=== PATIENT | male | born 1935 | race Caucasian/White ===

== ENCOUNTER → 2018-12-03 | Outpatient (REF) | payer MEDICARE ==
[~2018-12-03] MED LIST: ASPIRIN EC81 MG PO; LEVOTHYROXIN50 MCG PO; LISINOPRIL10 MG PO; OCUVIT1 PO; SIMVASTATIN40 MG PO; TIMOLOL 0.5%5 ML OD; XALATAN0.005 % OU
[2018-12-03 10:06] LABS: HEMATOCRIT 34.7 % (39.0-50.0); HEMOGLOBIN 11.3 g/dl (14.0-18.0); MEAN CELL VOLUME 97.7 fL CALC (80.0-100.0); MEAN CORPUSCULAR HGB 31.8 pG CALC (26.0-32.0); MEAN CORPUSCULAR HGB CONC 32.6 g/L CALC (32.0-36.0); RED BLOOD COUNT 3.55 mill/uL (4.70-6.10); RED CELL DISTRI WIDTH 13.3 % (11.5-15.5)
[2018-12-03 10:26] LABS: ALBUMIN 4.1 g/dL (3.2-5.0); BILIRUBIN, TOTAL 0.5 mg/dL (0.0-1.4); CREATININE 1.9 mg/dL (0.7-1.3); POTASSIUM 4.8 mmol/l (3.5-5.1); TOTAL PROTEIN 6.5 g/dL (6.3-8.2)
[2018-12-03 11:01] LABS: TSH, 3RD GENERATION 4.04 uIU/mL (0.47 - 4.68)
== END | disposition home or self-care (01) ==
LOC: LAB 08:09
PROVIDERS: ATTEND Internal Medicine
DX: E78.5 Hyperlipidemia, unspecified (principal); N18.3 Chronic kidney disease, stage 3 (moderate)

== ENCOUNTER 2022-12-15 09:22 | Emergency (ER) | payer MEDICARE ==
[~2022-12-15] VITALS: Ht 177.8 cm; Wt 63.5 kg
[2022-12-15 10:22] VITALS: BP 156/73
[2022-12-15 10:30] VITALS: BP 156/68
[2022-12-15 10:45] VITALS: BP 143/64
[2022-12-15 11:00] VITALS: BP 142/70
[2022-12-15 11:21] VITALS: BP 142/70
== END 2022-12-15 11:27 | disposition home or self-care (01) ==
LOC: ED 09:22
DX: M25.531 Pain in right wrist (principal)